=== PATIENT | female | born 2000 | race Caucasian/White ===

== ENCOUNTER 2022-11-13 13:11 | Emergency (ER) | payer SELFPAY ==
[~2022-11-13] VITALS: Ht 165.1 cm; Wt 86.8 kg
[2022-11-13 13:11] VITALS: BP 126/87
== END 2022-11-13 15:41 | disposition left against medical advice (07) ==
LOC: M ED 13:11
DX: Z53.21 Procedure and treatment not carried out due to patient leaving prior to being seen by health care provider (principal)

== ENCOUNTER → 2022-12-08 | Outpatient (REF) | payer OTHER ==
[2022-12-08 17:53] LABS: GC DNA AMPLIFICATION NEGATIVE (NEGATIVE)
== END ==
LOC: M LAB REF 16:05
PROVIDERS: ATTEND Physician Assistant
DX: R30.0 Dysuria (principal)

== ENCOUNTER → 2024-08-25 | Outpatient (CLI) | payer OTHER ==
[~2024-08-25] MED LIST: ISOVUE-370 76% 100ML VIAL As Ordered ONE
== END ==
LOC: M RADPRO 11:21
PROVIDERS: ATTEND General Practice
DX: N97.9 Female infertility, unspecified (principal)
CPT/HCPCS: 58340; 74740; Q9967

== ENCOUNTER 2024-10-12 05:56 | Day surgery (SDC) | payer OTHER ==
[~2024-10-12] VITALS: Ht 167.6 cm; Wt 110.7 kg
[~2024-10-12 05:56] MED LIST changes: +ALBU8.5H; -ISOVUE-370 76% 100ML VIAL As Ordered ONE; +VITA100093 PO
[2024-10-12] MEDS ORDERED: LR 1,000 ML IV SCH (06:35)
[2024-10-12 06:41] LABS: HEMATOCRIT 39.4 % (36.0-47.0); HEMOGLOBIN 13.1 g/dl (12.0-15.5); MEAN CORPUSCULAR HEMOGLOBIN 28.2 pg (27.0-33.0); MEAN CORPUSCULAR HGB CONC 33.2 g/dl (32.0-36.5); MEAN CORPUSCULAR VOLUME 84.7 fl (80.0-96.0); PLATELET COUNT, AUTOMATED 327 10^3/uL (150-450); RED BLOOD COUNT 4.65 10^6/uL (4.00-5.40); WHITE BLOOD COUNT 13.5 10^3/uL (4.0-10.0)
[2024-10-12] MEDS ORDERED: LIDOCAINE 2% 100MG/5ML SDV (FOR ANES.) As Ordered ONE (06:44)
[2024-10-12] MEDS ORDERED: MIDAZOLAM INJ 2MG/2ML VIAL As Ordered ONE (06:44)
[2024-10-12] MEDS ORDERED: propofoL 200 MG/20 ML VIAL As Ordered ONE (06:44)
[2024-10-12] MEDS ORDERED: fentaNYL 100 MCG/2 ML INJECTION As Ordered ONE (06:44)
[2024-10-12] MEDS ORDERED: ACETAMINOPHEN 1000MG/100ML IV BAG As Ordered ONE (06:44)
[2024-10-12] MEDS: SCOPOLAMINE 1MG TRANSDERMAL PATCH TOP ONE (06:51)
[2024-10-12] MEDS: ACETAMINOPHEN 500 MG TAB PO ONE (06:51)
[2024-10-12 06:59] LABS: BLOOD UREA NITROGEN 16 MG/DL (9-23); CALCIUM LEVEL 9.8 MG/DL (8.5-10.1); CARBON DIOXIDE LEVEL 27 MMOL/L (20-31); CHLORIDE LEVEL 104 MMOL/L (98-107); CREATININE FOR GFR 0.64 MG/DL (0.55-1.30); GLOMERULAR FILTRATION RATE > 60.0 (>60); GLUCOSE, FASTING 98 MG/DL (60-100); POTASSIUM SERUM 4.4 MMOL/L (3.5-5.1); SODIUM LEVEL 140 MMOL/L (136-145)
[2024-10-12 07:12] LABS: HCG, SERUM QUALITATIVE NEGATIVE (NEGATIVE)
[2024-10-12] MEDS ORDERED: ONDANSETRON 4MG 2ML VIAL As Ordered ONE (07:58)
[2024-10-12] MEDS ORDERED: KETOROLAC 60MG 2ML VIAL As Ordered ONE (07:58)
[2024-10-12] MEDS: LIDOCAINE 1% SDV 30ML VIAL As Ordered ONE (08:00)
[2024-10-12] MEDS: SILVER NITRATE APPLICATOR (1 = QTY 10) As Ordered ONE (08:00)
[2024-10-12] MEDS ORDERED: ONDANSETRON 4MG 2ML VIAL IV PRN ×2 (08:15→09:45)
[2024-10-12] MEDS ORDERED: oxyCODONE 5MG TAB PO PRN ×2 (08:15→09:45)
[2024-10-12] MEDS: fentaNYL 100 MCG/2 ML INJECTION IV PRN (08:35)
[2024-10-12 09:15] VITALS: BP 137/84; TEMP 97; O2SAT 97
[2024-10-12] MEDS ORDERED: PROMETHAZINE 25MG/ML 1ML VIAL IV PRN (09:45)
[2024-10-12] MEDS ORDERED: diphenhydrAMINE 50MG/ML VIAL IV PRN (09:45)
[2024-10-12] MEDS ORDERED: UNRESOLVED CLARIFICATION ENTRY XX SCH (10:00)
== END 2024-10-12 09:53 | disposition home or self-care (01) ==
LOC: M SDC 05:56
PROVIDERS: ATTEND General Practice
DX: N89.0 Mild vaginal dysplasia (principal); N93.9 Abnormal uterine and vaginal bleeding, unspecified; F17.290 Nicotine dependence, other tobacco product, uncomplicated
CPT/HCPCS: 36415; 58558; 80048; 84703; 85027; 86850; 86900; 86901; 88305; J0131; J1100; J1885; J2250; J2405; J3010

== ENCOUNTER → 2024-10-31 | Outpatient (CLI) | payer OTHER ==
[~2024-10-31] MED LIST changes: +ISOVUE-370 76% 100ML VIAL As Ordered ONE; +PROHANCE 279.3MG/ML 15ML VIAL As Ordered ONE; +PROHANCE 279.3MG/ML 5ML VIAL As Ordered ONE
== END ==
LOC: M RAD 16:15
PROVIDERS: ATTEND General Practice
DX: C54.1 Malignant neoplasm of endometrium (principal); N85.02 Endometrial intraepithelial neoplasia [EIN]

== ENCOUNTER 2025-02-13 09:05 | Day surgery (SDC) | payer OTHER ==
[~2025-02-13] VITALS: Ht 170.2 cm; Wt 110.2 kg
[2025-02-13] MEDS: ACETAMINOPHEN 500 MG TAB PO ONE (06:00)
[~2025-02-13 09:05] MED LIST changes: -ISOVUE-370 76% 100ML VIAL As Ordered ONE; +LR 1,000 ML IV SCH; -PROHANCE 279.3MG/ML 15ML VIAL As Ordered ONE; -PROHANCE 279.3MG/ML 5ML VIAL As Ordered ONE
[2025-02-13] MEDS ORDERED: propofoL 200 MG/20 ML VIAL As Ordered ONE (09:36)
[2025-02-13] MEDS ORDERED: fentaNYL 100 MCG/2 ML INJECTION As Ordered ONE (09:36)
[2025-02-13] MEDS ORDERED: ONDANSETRON 4MG 2ML VIAL As Ordered ONE (09:36)
[2025-02-13] MEDS ORDERED: MIDAZOLAM INJ 2MG/2ML VIAL As Ordered ONE (09:36)
[2025-02-13] MEDS ORDERED: LIDOCAINE 2% 100MG/5ML SDV (FOR ANES.) As Ordered ONE (09:36)
[2025-02-13] MEDS ORDERED: KETOROLAC 30 MG/ML 1ML VIAL As Ordered ONE (09:43)
[2025-02-13] MEDS: SCOPOLAMINE 1MG TRANSDERMAL PATCH TOP ONE (09:45)
[2025-02-13] MEDS: ENOXAPARIN 40MG/0.4ML SYRINGE (J1650 PER 10MG) SC ONE (11:10)
[2025-02-13] MEDS ORDERED: ACETAMINOPHEN 1000MG/100ML IV BAG As Ordered ONE (11:34)
[2025-02-13] MEDS ORDERED: dexmedeTOMIDine (4MCG/ML)200MCG/50ML BTL (PRECEDEX) As Ordered ONE (11:46)
[2025-02-13] MEDS: LEVONORGESTREL 52MG (MIRENA) IUD As Ordered ONE (11:57)
[2025-02-13] MEDS: LIDOCAINE 1% SDV 30ML VIAL As Ordered ONE (12:00)
[2025-02-13] MEDS: SILVER NITRATE APPLICATOR (1 = QTY 10) As Ordered ONE (12:00)
[2025-02-13 13:25] VITALS: BP 110/63; TEMP 98; O2SAT 96
[2025-02-15 16:08] LABS: HPV APTIMA Not Detected (Not Detected)
== END 2025-02-13 13:40 | disposition home or self-care (01) ==
LOC: M SDC 09:05
PROVIDERS: ATTEND General Practice
DX: C54.1 Malignant neoplasm of endometrium (principal); Z68.39 Body mass index [BMI] 39.0-39.9, adult
CPT/HCPCS: 36415; 58558; 81025; 86850; 86900; 86901; 87624; 88305; G0123; J0131; J1100; J1650; J1885; J2250; J2405; J3010; J7298

== ENCOUNTER → 2025-02-27 | Outpatient (CLI) | payer OTHER ==
[~2025-02-27] MED LIST changes: -LR 1,000 ML IV SCH
== END ==
LOC: M PLAIMG 13:08
PROVIDERS: ATTEND General Practice
DX: C54.1 Malignant neoplasm of endometrium (principal)